=== PATIENT | male | born 1970 | race Caucasian/White ===

== ENCOUNTER 2017-11-30 11:51 | Emergency (ER) | payer SELFPAY ==
[~2017-11-30] VITALS: Ht 180.3 cm; Wt 83.8 kg
[2017-11-30] MEDS ORDERED: LORazepam 1MG TABLET ONE (12:51)
[2017-11-30] MEDS ORDERED: LORazepam 1MG TABLET PO ONE (13:00)
[2017-11-30 13:32] VITALS: BP 147/86
== END 2017-11-30 13:35 | disposition home or self-care (01) ==
LOC: ED 12:41
DX: F11.23 Opioid dependence with withdrawal (principal); R53.1 Weakness; R53.83 Other fatigue; R10.9 Unspecified abdominal pain; R19.7 Diarrhea, unspecified; R68.83 Chills (without fever)
CPT/HCPCS: 99283